=== PATIENT | female | born 1960 | race Caucasian/White ===

== ENCOUNTER → 2019-08-04 | Day surgery (SDC) | payer BC ==
[2019-07-30 09:36] LABS: ANION GAP 17.9 mmol/L (8-16); BLOOD UREA NITROGEN 9 mg/dL (7-26); BUN/CREATININE RATIO 18 (6-25); CALCIUM 10.1 mg/dL (8.4-10.2); CARBON DIOXIDE 25 mmol/L (22-29); CHLORIDE 105 mmol/L (98-107); CREATININE, SERUM 0.51 mg/dL (0.57-1.11); EST GLOMERULAR FILTRATION RATE > 60 ML/MIN (60-); GLUCOSE 90 mg/dL (74-118); POTASSIUM 3.9 mmol/L (3.5-5.1); SODIUM 144 mmol/L (136-145)
--- NOTE | 2019-07-30 11:10 | Diagnostic Imaging Report ---
EXAMINATION: CHEST 2 VIEWS INDICATION: Pre-operative COMPARISON: None FINDINGS: LINES/TUBES:None LUNGS:The lungs are well-inflated. A 2.3 cm nodular opacity at the right hilum may represent hilar lymphadenopathy or a hilar nodule or alternatively a prominent vessel on end. No focal consolidation or pulmonary edema. PLEURA:No pleural effusion or pneumothorax. MEDIASTINUM:The cardiomediastinal silhouette appears normal in size and shape. BONES/SOFT TISSUES:No acute osseous injury. ABDOMEN:No free air under the diaphragm. IMPRESSION: No focal pneumonia or pulmonary edema. 2.3cm nodular opacity at the right hilum may represent hilar lymphadenopathy, a hilar nodule, or alternatively a prominent vessel on end. RECOMMENDATIONS: Chest CT for further evaluation of right hilar nodule. Signed by: Arcelia Sharp MD on 07/30/2019 11:06 AM
[~2019-08-04] MED LIST: ATENOLOL50 MG PO; BIOTIN10 MG PO; CEFAZOLIN SOD 1 GM/NS 50ML 50 ML IV ONE; DEXAMETHASONE SOD PHOS INJ 4 MG/ML VIAL ONE; FENOFIBRATE145 MG PO; FENTANYL CITRATE/PF 100MCG/2 ML INJ ONE; GLIMEPIRIDE4 MG PO; IBUPROFEN400 MG PO; INVOKAMET XR 11 EAC1 PO; KETOROLAC TROMETHAMINE 30 MG/ML VIAL ONE; LIDOCAINE HCL 2% LOCAL INJ 5 ML SDV VIAL INJ ONE; LIPITOR20 MG PO; LISINOPRIL-HCT1 EAC1 PO; MIDAZOLAM HCL 2 MG/2 ML VIAL ONE; ONDANSETRON HCL INJ 2MG/ML 2ML 2 MG/ML VIAL ONE; PROPOFOL IV EMULSION 10 MG/ML 20 ML VIAL ONE; SEVOFLURANE INHAL SOLN 250 ML PEN BTL ONE; TRAMADOL HCL 50 MG TAB ONE; TRESIBA FL200 UNIT/1 SQ; VASCEPA1 GM PO; VICTOZA 2-0.6 MG/0.1 PO; XANAX0.25 MG PO
--- OUTSIDE RECORDS SUMMARY | 2019-08-04 05:22 | XMS REPORT ---
Author Author [facility] Address Unknown Phone Unavailable Care Team Providers Care Utility Person Name Role Phone SOPHIA PATE Unavailable Unavailable Problems This patient has no known problems. Allergies, Adverse Reactions, Alerts This patient has no known allergies or adverse reactions. Medications This patient has no known medications. Encounters Start Date/Time End Date/Time Encounter Type Admission Type Attending Page [facility] Care Department Encounter ID 2019-05-01 08:23:00 2019-05-01 08:23:00 Outpatient [id number] Results Test Description Test Time Test Comments Text Results Atomic Results Result Comments CHEST 2 VIEWS 2019-07-30 11:04:00 [place] [id number] Patient Name: EMMANUEL FRIEND MR #: [id number] : 1960 Age/Sex: 58/F Req #: [id number] Adm Physician: Ordered by: SOPHIA PATE MD Report #: [id number] Location: OR Room/Bed: Procedure: [id number] DX/CHEST 2 VIEWS Exam Date: 07/30/19 Exam Time: 0900 REPORT STATUS: Signed EXAMINATION: CHEST 2 VIEWS INDICATION: Pre-operative COMPARISON: None FINDINGS: LINES/TUBES:None LUNGS:The lungs are well-inflated. A 2.3 cm nodular opacity at the right hilum may represent hilar lymphadenopathy or a hilar nodule or alternatively a prominent vessel on end. No focal consolidation or pulmonary edema. PLEURA:No pleural effusion or pneumothorax. MEDIASTINUM:The cardiomediastinal silhouette appears normal in size and shape. BONES/SOFT TISSUES:No acute osseous injury. ABDOMEN:No free air under the diaphragm. IMPRESSION: No focal pneumonia or pulmonary edema. 2.3cm nodular opacity at the right hilum may represent hilar lymphadenopathy, a hilar nodule, or alternatively a prominent vessel on end. RECOMMENDATIONS: Chest CT for further evaluation of right hilar nodule. Signed by: Zeyad Sharp MD on 07/30/2019 11:06 AM Dictated By: ZEYAD SHARP MD 110 Transcribed By: ANAID on 07/30/191105 COPY TO: SOPHIA PATE MD
[2019-08-04 09:30] VITALS: BP 104/70
--- NOTE | 2019-08-04 12:10 | Operative Report ---
DATE OF PROCEDURE: 08/04/2019 SURGEON: Vu Wilson MD PROFESSIONAL BONDSMAN: Arcadio Chand, certified PA. PREOPERATIVE DIAGNOSIS: Bilateral carpal tunnel syndrome. POSTOPERATIVE DIAGNOSIS: Bilateral carpal tunnel syndrome. PROCEDURE: Bilateral endoscopic carpal tunnel release. INDICATIONS: The patient is a 58-year-old lady, who has clinic signs and symptoms consistent with bilateral carpal tunnel syndrome. She also has nerve conduction test, suggesting a cervical radiculopathy. The findings and options have been discussed. She would like to have bilateral carpal tunnel release. The possibility of some persistent discomfort was explained. She states she understands and wishes to proceed. PROCEDURE IN DETAIL: The patient was brought to the operating room and placed under general anesthetic. She received prophylactic antibiotics in the holding area. Both upper extremities were prepped and draped in a sterile manner. A preoperative time-out was performed. Initial attention was directed towards the right arm. The extremity was exsanguinated and a proximal tourniquet was inflated to 250 mmHg. A small incision was made over the flexion crease of the right wrist. The palmaris longus was retracted to the radial side of the wound. The flexor retinaculum was elevated and incised with a pair of tenotomy scissors. An elevator was used to tease the tenosynovium off the undersurface of the transverse carpal ligament. Dilators were placed and the hook of the hamate was palpated. The MicroAire endoscope was then placed into the carpal tunnel. The undersurface of the ligament was cleanly visualized without evidence of soft tissue interposition. The knife was deployed and the ligament was cut from distal to proximal. A full-thickness cut was noted. The proximal retinaculum was incised under direct visualization using a pair of tenotomy scissors. The incision was closed with two interrupted nylon stitches. A sterile bandage was applied. The tourniquet was deflated. The same procedure was then performed on the left arm. The patient was extubated and transported to the recovery room in stable condition. There was no blood loss and all needle and sponge counts were correct. Vu Wilson MD DR/DANIEL /[id number]
== END | disposition home or self-care (01) ==
LOC: OR 05:17
PROVIDERS: ATTEND Specialist
DX: G56.03 Carpal tunnel syndrome, bilateral upper limbs (principal); E11.9 Type 2 diabetes mellitus without complications; I10 Essential (primary) hypertension; Z88.6 Allergy status to analgesic agent; Z88.1 Allergy status to other antibiotic agents; Z88.8 Allergy status to other drugs, medicaments and biological substances; Z01.810 Encounter for preprocedural cardiovascular examination; Z01.812 Encounter for preprocedural laboratory examination; Z01.818 Encounter for other preprocedural examination; Z79.4 Long term (current) use of insulin; Z79.84 Long term (current) use of oral hypoglycemic drugs; Z68.41 Body mass index [BMI] 40.0-44.9, adult; Z87.891 Personal history of nicotine dependence
CPT/HCPCS: 29848; 36415 ×2; 71046; 80048; 82948; 93005; J0690; J1100; J1885; J2001; J2250; J2405; J2704; J3010